=== PATIENT | female | born 1960 | race American Indian/Alaskan Native ===

== ENCOUNTER 2017-08-01 15:56 | Emergency (ER) | payer MEDICAID ==
[2017-08-01 16:02] VITALS: BP 160/94; PULSE 72; TEMP 97.4; O2SAT 98
--- NOTE | 2017-08-01 16:15 | C.PDOC ---
Time Seen by Provider: 08/01/17 16:08 Chief Complaint (Nursing): Psychiatric Evaluation Past Medical History Vital Signs: Last Vital Signs Temp 97.4 F L 08/01/17 16:00 Pulse 72 08/01/17 16:00 Resp 20 08/01/17 16:00 BP 160/94 H 08/01/17 16:00 Pulse Ox 98 08/01/17 16:00 - Medical History PMH: HTN Denies: Diabetes, Hepatitis, HIV, Seizures, Sexually Transmitted Disease - [facility] Procedures GROUP PSYCHOTHERAPY (07/16/17) Family History: States: Unknown Family Hx - Social History Hx Alcohol Use: No Hx Substance Use: No - Immunization History Hx Tetanus Toxoid Vaccination: No Hx Influenza Vaccination: No Hx Pneumococcal Vaccination: No ED Course And Treatment O2 Sat by Pulse Oximetry: 98 Progress - Re-Evaluation Re-evaluation Note: 08/01/17 16:08 D/W CRISIS DEONTE: PT EVAL 2/3, DC SCHIZOPHRENIA AND PARANOID DELUSIONS. PENDING OUPT APPT 08/02 - Data Reviewed Data Reviewed: Old records Disposition - Disposition
--- NOTE | 2017-08-01 16:30 | C.PDOC ---
History Of Present Illness CO SUPRAPUB PAIN SINCE YEST. NO FEVER, NVD, UTI SX. DENIES OTHER ASSOC SX. PRIOR ER VISITS FOR VARIOUS COMPLAINTS, EVAL ER 3/ AND STATED BELIEVED SHE IS AND HAVING LABOR PAINS. DENIES PSYCH SX EXAM NONTOXIC APPEARS COMFORTABLE ABD SOFT NT ND NO R/G REMAINDER NEG Time Seen by Provider: 08/01/17 16:08 Chief Complaint (Nursing): Psychiatric Evaluation History Per: Patient History/Exam Limitations: no limitations Onset/Duration Of Symptoms: Days (1) Past Medical History Reviewed: Historical Data, Nursing Documentation, Vital Signs Vital Signs: Last Vital Signs Temp 97.4 F L 08/01/17 16:00 Pulse 72 08/01/17 16:00 Resp 20 08/01/17 16:00 BP 160/94 H 08/01/17 16:00 Pulse Ox 98 08/01/17 16:51 - Medical History PMH: HTN - [facility] Procedures GROUP PSYCHOTHERAPY (07/16/17) Family History: States: No Known Family Hx - Social History Hx Alcohol Use: No Hx Substance Use: No - Immunization History Hx Tetanus Toxoid Vaccination: No Hx Influenza Vaccination: No Hx Pneumococcal Vaccination: No Review Of Systems Except As Marked, All Systems Reviewed And Found Negative. Constitutional: Negative for: Fever Gastrointestinal: Positive for: Abdominal Pain (suprapubic). Negative for: Nausea, Vomiting, Diarrhea Genitourinary: Negative for: Dysuria, Hematuria Physical Exam - Physical Exam Appears: Non-toxic, No Acute Distress Skin: Warm, Dry, No Rash Oral Mucosa: Moist Respiratory: Normal Breath Sounds Gastrointestinal/Abdominal: Normal Exam, Soft, No Tenderness, No Guarding, No Rebound Back: No CVA Tenderness Extremity: Normal ROM, No Swelling Neurological/Psych: Oriented x3, Normal Speech ED Course And Treatment O2 Sat by Pulse Oximetry: 98 (RA) Pulse Ox Interpretation: Normal Progress - Re-Evaluation Re-evaluation Note: 08/01/17 16:08 D/W CRISIS DEONTE: PT EVAL 2/, DC SCHIZOPHRENIA AND PARANOID DELUSIONS. PENDING OUPT APPT 08/0208/01/17 17:09 exam unch FROM [facility] APPEARS COMFORTABLE NO S/S ACUTE ABD - Data Reviewed Data Reviewed: Lab, Old records Medical Decision Making Medical Decision Making: PLAN: * Urinalysis Disposition Counseled Patient/Family Regarding: Studies Performed, Diagnosis, Need For Followup - Disposition Referrals: [facility] [Outside] [facility] [Outside] Disposition: HOME/ ROUTINE Disposition Time: 17:09 Condition: GOOD Instructions: Acute Abdomen (Belly Pain) Forms: [facility] (Honduran) - Clinical Impression Clinical Impression: Schizophrenia, Abdominal pain - Scribe Statement The provider has reviewed the documentation as recorded by the Camrynibe Eulalia Jesus Provider Attestation: All medical record entries made by the Camrynibmelanie were at my direction and personally dictated by me. I have reviewed the chart and agree that the record accurately reflects my personal performance of the history, physical exam, medical decision making, and the department course for this patient. I have also personally directed, reviewed, and agree with the discharge instructions and disposition.
[2017-08-01 16:43] LABS: SQUAMOUS EPITHIAL 5 /hpf (0-5); URINE BACTERIA RARE (<OCC); URINE BILIRUBIN NEGATIVE (NEGATIVE); URINE BLOOD NEGATIVE (NEGATIVE); URINE CLARITY Hazy (Clear); URINE COLOR Yellow (YELLOW); URINE GLUCOSE (UA) NORMAL (Normal); URINE LEUKOCYTE ESTERASE NEG Leu/uL (Negative); URINE NITRATE NEGATIVE (NEGATIVE); URINE PROTEIN NEGATIVE (NEGATIVE); URINE UROBILINOGEN NORMAL mg/dL (0.2-1.0)
[2017-08-01 17:36] VITALS: RESP 18
== END 2017-08-01 17:15 | disposition home or self-care (01) ==
LOC: C.ER 15:56
DX: R10.30 Lower abdominal pain, unspecified (principal); F20.9 Schizophrenia, unspecified